=== PATIENT | female | born 1930 | race Caucasian/White ===

== ENCOUNTER 2016-08-28 17:36 | Observation (INO) | payer OTHER, MEDICARE ==
[2016-08-28] MEDS ORDERED: PANTOPRAZOLE SODIUM 40 MG VIAL IV ONE (19:12)
[2016-08-28] MEDS ORDERED: SODIUM CHLORIDE 0.9% 1,000 ML ONE (19:12)
[2016-08-28 20:07] LABS: ALB/GLOB RATIO 1.3 (>1.0); ALBUMIN 4.2 gm/dL (3.5-5.7); CALCIUM 9.4 mg/dL (8.6-10.3); MAGNESIUM 1.8 mg/dL (1.9-2.7)
[2016-08-28 20:08] LABS: INR 0.98; PROTHROMBIN TIME 10.3 SECONDS (9.3-11.4)
[2016-08-28 20:09] LABS: C-REACTIVE PROTEIN 1.7 mg/dl (<1.0)
[2016-08-28 20:16] LABS: CKMB ISOENZYME 2.7 ng/ml (0.6-6.3)
[2016-08-28 20:39] LABS: TROPONIN I < 0.01 ng/ml (0.0-0.06)
[2016-08-28] MEDS ORDERED: BISACODYL 10 MG SUP PR PRN (20:42)
[2016-08-28] MEDS ORDERED: SODIUM CHLORIDE 0.9% 100 ML IV PRN (20:42)
[2016-08-28] MEDS ORDERED: BLISTEX LIPSTICK 1 EACH TP PRN (20:42)
[2016-08-28] MEDS ORDERED: MAGNESIUM HYDROXIDE 30 ML UDCUP PO PRN (20:42)
[2016-08-28] MEDS ORDERED: ACETAMINOPHEN 325 MG TABLET PO PRN (20:42)
[2016-08-28] MEDS ORDERED: BISACODYL 5 MG TABLET.EC PO PRN (20:42)
[2016-08-28] MEDS ORDERED: MENTHOL/CETYLPYRD 1 EACH LOZENGE PO PRN (20:42)
[2016-08-28 20:44] LABS: HEMATOCRIT 40.9 % (37.0-47.0); HEMOGLOBIN 13.8 gm/l (12.0-16.0)
[2016-08-28 20:45] LABS: BASO % 0.2 % (0.2-1.0); IMM NEUT% 0.4 % (0-1); LYMPH # 0.7 (1.0-4.8); LYMPH % 8.6 % (15-45); MEAN CELL VOLUME 91.3 fl (81.0-99.0); MEAN CORPUSCULAR HEMOGLOBIN 30.8 pg (27.0-31.0); MEAN CORPUSCULAR HGB CONC 33.7 g/dl (33.0-37.0); MEAN PLATELET VOLUME 9.9 fl (7.4-10.4); MONO # 0.8 (0.0-0.8); MONO % 8.8 % (4-12); PLATELET COUNT 255 K/mm3 (130-400); RED CELL DISTRIBUTION WIDTH 13.1 % (11.5-14.5)
[2016-08-28] MEDS ORDERED: SODIUM CHLORIDE 0.9% 500 ML IV SCH (20:45)
[2016-08-28] MEDS ORDERED: CEFTRIAXONE SODIUM 1 G in NS 0.9% (MINI-BAG PLUS) 50 ML IV SCH (22:20)
[2016-08-28 22:30] LABS: URINE BILIRUBIN NEGATIVE (NEGATIVE); URINE BLOOD 3+ (NEGATIVE); URINE GLUCOSE (UA) NEGATIVE (NEGATIVE); URINE LEUKOCYTE ESTERASE 1+ (NEGATIVE); URINE NITRITE NEGATIVE (NEGATIVE); URINE PROTEIN 1+ (NEGATIVE); URINE UROBILINOGEN 1 mg/dL (0-1 mg/dl)
[2016-08-28] MEDS ORDERED: AZITHROMYCIN 500 MG in SODIUM CHLORIDE 0.9% 250 ML IV SCH (22:30)
[2016-08-28 22:32] LABS: URINE APPEARANCE CLEAR; URINE COLOR AMBER
[2016-08-28 22:47] LABS: URINE BACTERIA 1+
[2016-08-28] MEDS ORDERED: PUMP TUBING ONE (23:03)
[2016-08-28] MEDS: SODIUM CHLORIDE 0.9% 1,000 ML IV SCH (23:08)
[2016-08-28] MEDS: DOCUSATE SODIUM 100 MG CAPSULE PO SCH (23:11)
[2016-08-29 00:19] VITALS: BMI 22.6
[2016-08-29] MEDS ORDERED: Oseltamivir Phosphate 75 MG CAP PO SCH (00:30)
--- NOTE | 2016-08-29 05:42 | HP ---
MARVIN BAER [id number] DATE OF ADMISSION: August 28, 2016 CHIEF COMPLAINT: Syncope and fall. HISTORY OF PRESENT ILLNESS: The patient is an 86-year-old female who is reported to be on the phone today and then stopped talking and a fall was heard over the phone. Her family then went to check on her and no injury was noted, but in the process of cleaning her up, some dark melena like stool was noted. She also vomited but it only looked like her lunch, no coffee grounds or blood were noted. She denies any use of antiinflammatories. Does not use any alcohol. She has had no history of upper or lower endoscopy. At this time, her only complaint is that she is tired and thirsty. She denies pain at this time. PAST MEDICAL HISTORY: Remarkable for: 1. Alzheimer's type dementia. 2. She had one similar near syncopal episode in 2014 which did not have an obvious cause. 3. Hypertension where she takes medicine. PAST SURGICAL HISTORY: Remarkable for: 1. Vaginal hysterectomy. 2. Tonsillectomy. ALLERGIES: NONE. MEDICATIONS: She takes: 1. Lisinopril/hydrochlorothiazide 20/12.5 mg daily. 2. Atenolol 50 mg daily, although daughter is not certain if the Zestoretic dose is actually two pills. 3. Other medicines she has taken in the past include vitamin D and alendronate. 4. She has also stopped the pravastatin. SOCIAL HISTORY: She lives at home. She is . She previously has been a school traffic guard. She has six kids. No smoking and no alcohol. No particular sikhism affiliation. Hobbies include fill in books, crosswords and puzzles. FAMILY HISTORY: Father, no data. Mom at 69. REVIEW OF SYSTEMS: Moderately worsened memory just in the last couple of days noted by family. She has also had some cough and was seen by Dr. Bradford earlier today. Eyes are okay. Ears are okay although she is quite hard of hearing. Nose is okay. Mouth is okay. Teeth have been okay, no complaints. Neck is okay, no complaints. Breathing is reported to be okay although she has had a cough. Family has noted that she gets out of breath with activity particularly recently. No heart complaints, no stomach complaints, no history of diarrhea. No urinary complaints. No arm or leg complaints, no swelling. She did have a spot which sounds like lichen simplex chronicus two years ago on her ankle which resolved with stopping scratching. She had the fall today but no other recent falls. She does not have any history of strokes noted. Daughter indicates that she would be DO NOT RESUSCITATE. PHYSICAL EXAM: GENERAL: Uncomfortable female, chilling some. She is hard of hearing and demented, otherwise appears younger than stated age. VITAL SIGNS: Blood pressure is 98/46, temperature 97.6, heart rate 78, respirations 16, 98% saturation on room air. HEAD: Head is normocephalic, atraumatic. There is no bruising or tenderness. EYES: Are normal externally. EARS: Quite hard of hearing bilaterally. No significant abnormality other than some cerumen. NOSE: Is normal. MOUTH: Is unremarkable. Dentition is very good for age. NECK: Is supple, no jugular venous distension, no masses. No tenderness, no crepitance. LUNGS: Slight tubular breath sounds noted in the right posterior lung field. Rare crackles are heard but no significant wheezing is noted. HEART: Regular rate and rhythm without murmur. ABDOMEN: A few striae noted, no rebound, no guarding. Bowel sounds are normal. Nontender, nondistended. GENITOURINARY: Exam is deferred. BREAST: Exam is deferred. EXTREMITIES: No clubbing, cyanosis or edema. Onychomycosis is noted but otherwise extremities appear to be quite good for age. NEUROLOGIC: Cranial nerves are intact except for being quite hard of hearing. Her cognition does appear impaired consistent with the diagnosis of Alzheimer's type dementia. However, she is very pleasant. LABORATORY: Sodium 133, potassium 3.7, chloride 94, CO2 28, BUN 26, creatinine 1.1, glucose 121, calcium is 9.4, magnesium 1.8, AST 44, ALT 22, alkaline phosphatase 59, lactate 1.2, albumin 4.2, lipase 45, CPK total is 36, BNP is 44, CRP is 1.7. CBC is still pending. INR is 0.98. IMAGING: No imaging so far. ASSESSMENT AND PLAN: 1. Syncopal event with reported dark stool. Plan to monitor hemoglobin and hematocrit, continue on telemetry. Fecal occult blood testing. Anticipate Protonix and could consider for scope testing either as inpatient or outpatient later. 2. Cough with recent syncopal event. We will check influenza, check chest x-ray, check CBC. We will be holding lisinopril. Blood cultures were drawn. Anticipate starting Rocephin and azithromycin and given IV fluid bolus and recheck lactate. 3. Hypertension. Blood pressure is currently on the low side so anticipate holding the Zestoretic and put a parameter for the atenolol. 4. Dementia, Alzheimer's type, without behavioral disturbance. 5. DO NOT RESUSCITATE status discussed with daughter. 6. Venous thrombosis prophylaxis. Anticipate use of mechanical treatment because of the concern for blood loss, although at this time her color still appears to be very good. cc: Nini Blanco M.D.
[2016-08-29 07:00] LABS: ABSOLUTE NEUTROPHIL COUNT 3.6 K/mm3 (1.8-7.7); BASO % 0.2 % (0.2-1.0); HEMATOCRIT 33.7 % (37.0-47.0); HEMOGLOBIN 11.3 gm/l (12.0-16.0); IMM NEUT% 0.4 % (0-1); LYMPH % 19.5 % (15-45); MEAN CELL VOLUME 91.3 fl (81.0-99.0); MEAN CORPUSCULAR HEMOGLOBIN 30.6 pg (27.0-31.0); MEAN CORPUSCULAR HGB CONC 33.5 g/dl (33.0-37.0); MEAN PLATELET VOLUME 9.8 fl (7.4-10.4); MONO # 0.6 (0.0-0.8); MONO % 11.8 % (4-12); NEUT % 68.1 % (43-75); PLATELET COUNT 203 K/mm3 (130-400); RED CELL DISTRIBUTION WIDTH 13.2 % (11.5-14.5)
[2016-08-29] MEDS: SODIUM CHLORIDE 0.9% 1,000 ML IV SCH ×2 (07:29→09:14)
[2016-08-29 07:33] LABS: ALB/GLOB RATIO 1.3 (>1.0); ALBUMIN 3.3 gm/dL (3.5-5.7); CALCIUM 7.9 mg/dL (8.6-10.3)
--- NOTE | 2016-08-29 07:55 | RAD ---
History: Cough with syncope. Comparison: 08/24/2014. Technique: 2 views Findings: The soft tissue and bony structures are unremarkable. The heart size is appropriate. No infiltrate, effusion or pneumothorax is observed. The hilar and mediastinal structures are normal. Impression: 1. No active intra-thoracic disease.
[2016-08-29] MEDS: ATENOLOL 50 MG TABLET PO SCH (09:04)
[2016-08-29] MEDS: DOCUSATE SODIUM 100 MG CAPSULE PO SCH ×2 (09:13→22:10)
--- NOTE | 2016-08-29 10:40 | PDOC43 ---
- Subjective Chief Complaint: Syncope, hematochezia Patient reports feeling pretty good. Annoyed by beeping IV. PT reports pt tolerated activity ok. Some additional red blood with stool this am. No new c/ o. - Objective Vital Signs Temperature 99.0 F 08/29/16 05:00 Pulse Rate 78 08/29/16 09:11 Respiratory Rate 18 08/29/16 09:11 Blood Pressure 96/78 08/29/16 09:11 O2 Saturation by Pulse Oximetry 97 08/29/16 09:11 Oxygen Delivery Method Room Air Oxygen Flow Rate 0 Vital Signs Last 12 Hours Temp Pulse Resp BP Pulse Ox 08/29/16 09:11 78 18 96/78 97 08/29/16 09:09 79 18 98/58 95 08/29/16 09:07 65 18 95/45 96 08/29/16 08:00 18 08/29/16 05:00 99.0 F 76 18 103/61 92 08/29/16 00:16 99.1 F 82 16 107/53 94 Intake and Output 08/27/16 08/28/16 08/29/16 23:59 23:59 23:59 Intake Total 1150 Output Total 601 Balance 549 General: Alert, Cooperative, No Acute Distress HEENT: Atraumatic Lungs: Clear to Auscultation Bilaterally (air movement fairly good bilat.), Normal Air Movement Cardiovascular: Regular Rate and Rhythm Abdomen: Soft, Normal Bowel Sounds, Non-Distended, No Tenderness Extremities: No Edema, No Tenderness Skin: Normal Color, No Rash, No Erythema Neurological: Normal Speech Psych/Mental Status: Normal Affect (demented) Laboratory 08/29/16 06:30 08/29/16 06:30 08/29/16 08/28/16 06:30 23:15 RBC 3.69 L Estimated GFR 52 L Calcium 7.9 L Total Protein 5.9 L Albumin 3.3 L Influenza A (Rapid) Positive H Current Medications: Current meds reviewed in EMR. Active Medications Acetaminophen (Tylenol) 650 mg PO Q6H PRN PRN Reason: Pain or Temperature > 100.5 F Atenolol (Tenormin) 50 mg PO DAILY [facility] Last Admin: 08/29/16 09:04 Dose: Not Given Benzocaine/Menthol (Cepacol) 1 each PO PRN PRN PRN Reason: Sore Throat Bisacodyl (Dulcolax) 10 mg HI DAILY PRN PRN Reason: Constipation Bisacodyl (Dulcolax) 5 mg PO DAILY PRN PRN Reason: Constipation Docusate Sodium (Colace) 100 mg PO BID [facility] Last Admin: 08/29/16 09:13 Dose: 100 mg Sodium Chloride (Sodium Chloride 0.9%) 100 mls @ 25 mls/hr IV PRN PRN PRN Reason: Flush Sodium Chloride (Sodium Chloride 0.9%) 1,000 mls @ 125 mls/hr IV .Q8H [facility] Stop: 08/29/16 12:44 Last Admin: 08/29/16 09:14 Dose: 125 mls/hr Azithromycin 500 mg/ Sodium (Chloride) 250 mls @ 250 mls/hr IV Q24H [facility] Last Admin: 08/28/16 23:57 Dose: 250 mls/hr Ceftriaxone Sodium 1 g/ NS 0.9 (% (MINI-BAG PLUS)) 50 mls @ 200 mls/hr IV Q24H [facility] Last Admin: 08/28/16 23:09 Dose: 200 mls/hr Magnesium Hydroxide (Milk Of Magnesia) 30 ml PO DAILY PRN PRN Reason: Constipation Oseltamivir Phosphate (Tamiflu) 30 mg PO BID [facility] Pantoprazole Sodium (Protonix) 40 mg IV Q24H [facility] Petrolatum/Paraffin/Mineral Oil (Blistex) 1 each TP PRN PRN PRN Reason: Dry and/or chapped lips Sodium Chloride (Normal Saline 10ml Flush) 10 - 50 ml IV PRN PRN PRN Reason: IV Flush Sodium Chloride (Normal Saline 10ml Flush) 10 ml IV Q8HR [facility] Last Admin: 08/29/16 09:04 Dose: Not Given - Problems: Assessment/Plan (1) Cough Status: Acute Assessment/Plan: Due to acute influenza. Started on Tamiflu 08/28. Holding PAM-I for now, evie with lower BP. (2) Syncope Qualifiers: Syncope type: unspecified Qualifier Code: (R55) Syncope and collapse Status: Acute Assessment/Plan: Suspect lower BP associated with illness. Anticipate holding med(s) for now. Reported to be doing well activity tolerance-tong. (3) Dementia Status: Chronic Assessment/Plan: Stable. (4) Hypertension Qualifiers: Hypertension type: essential hypertension Qualifier Code: (I10) Essential (primary) hypertension Status: Chronic Assessment/Plan: Anticipate holding PAM/HCTZ for now. (5) Hematochezia Status: Acute Assessment/Plan: Laboratory Tests 08/28/16 08/29/16 19:30 06:30 Hgb 13.8 11.3 L D Moderate drop in Hb. Plan to resume regular diet, don't anticipate endoscopy while in the hospital. Stop IV and recheck H/H in am. VTE Prophylaxis: enoxaparin Disposition: Consider for DC tomorrow if continues to do well, Hb stable.
[2016-08-29] MEDS: OSELTAMIVIR PHOSPHATE 30 MG/5 ML SYRINGE PO SCH ×2 (11:07→22:10)
[2016-08-29] MEDS: PANTOPRAZOLE 40 MG TABLET DR PO SCH (11:10)
[2016-08-29] MEDS ORDERED: PANTOPRAZOLE SODIUM 40 MG VIAL IV SCH (20:00)
[2016-08-30 06:54] LABS: HEMATOCRIT 33.9 % (37.0-47.0); HEMOGLOBIN 11.4 gm/l (12.0-16.0); MEAN CELL VOLUME 91.1 fl (81.0-99.0); MEAN CORPUSCULAR HEMOGLOBIN 30.6 pg (27.0-31.0); MEAN CORPUSCULAR HGB CONC 33.6 g/dl (33.0-37.0); RED CELL DISTRIBUTION WIDTH 12.9 % (11.5-14.5)
[2016-08-30 07:51] VITALS: BP 133/55
[2016-08-30] MEDS: DOCUSATE SODIUM 100 MG CAPSULE PO SCH (08:13)
[2016-08-30] MEDS: ATENOLOL 50 MG TABLET PO SCH (08:13)
[2016-08-30] MEDS: OSELTAMIVIR PHOSPHATE 30 MG/5 ML SYRINGE PO SCH (08:28)
--- NOTE | 2016-08-30 11:43 | PDOC43 ---
- Subjective Chief Complaint: Syncope, hematochezia Patient reported to be doing well, fairly close to baseline. Tolerating activity ok. No new c/o. - Objective Vital Signs Temperature 99.2 F 08/30/16 08:00 Pulse Rate 65 08/30/16 08:00 Respiratory Rate 17 08/30/16 08:00 Blood Pressure 133/55 08/30/16 08:00 O2 Saturation by Pulse Oximetry 100 08/30/16 08:00 Oxygen Delivery Method Room Air Oxygen Flow Rate 0 Vital Signs Last 12 Hours Temp Pulse Resp BP Pulse Ox 08/30/16 08:00 99.2 F 65 17 133/55 100 08/30/16 07:00 99.2 F 65 17 133/55 100 08/30/16 03:20 98.1 F 71 18 116/95 99 08/30/16 02:00 18 08/30/16 01:02 143/65 08/30/16 00:59 145/75 08/30/16 00:55 99.2 F 70 18 112/64 99 Intake and Output 08/28/16 08/29/16 08/30/16 23:59 23:59 23:59 Intake Total 3220 150 Output Total 1101 200 Balance 2119 -50 General: Alert, Cooperative, No Acute Distress Lungs: Clear to Auscultation Bilaterally Cardiovascular: Regular Rate and Rhythm Abdomen: Soft, Normal Bowel Sounds, Non-Distended Extremities: No Edema, No Tenderness Skin: Normal Color Neurological: Normal Speech Psych/Mental Status: Other (poor memory) Laboratory 08/30/16 05:20 08/29/16 06:30 08/30/16 05:20 RBC 3.72 L Laboratory Tests 08/28/16 08/29/16 08/30/16 19:30 06:30 05:20 Hgb 13.8 11.3 L D 11.4 L Current Medications: Current meds reviewed in EMR. Active Medications Acetaminophen (Tylenol) 650 mg PO Q6H PRN PRN Reason: Pain or Temperature > 100.5 F Atenolol (Tenormin) 50 mg PO DAILY [facility] Last Admin: 08/30/16 08:13 Dose: 50 mg Benzocaine/Menthol (Cepacol) 1 each PO PRN PRN PRN Reason: Sore Throat Bisacodyl (Dulcolax) 10 mg [place] DAILY PRN PRN Reason: Constipation Bisacodyl (Dulcolax) 5 mg PO DAILY PRN PRN Reason: Constipation Docusate Sodium (Colace) 100 mg PO BID [facility] Last Admin: 08/30/16 08:13 Dose: 100 mg Sodium Chloride (Sodium Chloride 0.9%) 100 mls @ 25 mls/hr IV PRN PRN PRN Reason: Flush Magnesium Hydroxide (Milk Of Magnesia) 30 ml PO DAILY PRN PRN Reason: Constipation Oseltamivir Phosphate (Tamiflu) 30 mg PO BID [facility] Last Admin: 08/30/16 08:28 Dose: 30 mg Pantoprazole Sodium (Protonix) 40 mg PO Q24H [facility] Last Admin: 08/29/16 11:10 Dose: 40 mg Petrolatum/Paraffin/Mineral Oil (Blistex) 1 each TP PRN PRN PRN Reason: Dry and/or chapped lips Sodium Chloride (Normal Saline 10ml Flush) 10 - 50 ml IV PRN PRN PRN Reason: IV Flush Sodium Chloride (Normal Saline 10ml Flush) 10 ml IV Q8HR [facility] Last Admin: 08/30/16 08:13 Dose: 10 ml - Problems: Assessment/Plan (1) Syncope Qualifiers: Syncope type: unspecified Qualifier Code: (R55) Syncope and collapse Status: Acute Assessment/Plan: Suspect lower BP associated with illness. Anticipate holding zestoretic for now. Reported to be doing well activity tolerance-tong. (2) Cough Status: Acute Assessment/Plan: Due to acute influenza. Started on Tamiflu 08/28. Holding PAM-I for now, evie with lower BP. (3) Dementia Status: Chronic Assessment/Plan: Stable. Appreciate SW/childcare worker speaking with daughter . Anticipate DC to daughter's house. (4) Hypertension Qualifiers: Hypertension type: essential hypertension Qualifier Code: (I10) Essential (primary) hypertension Status: Chronic Assessment/Plan: Anticipate holding PAM/HCTZ, check with Dr Bradford about restart. (5) Hematochezia Status: Acute Assessment/Plan: Hb stable from yesterday. Rec'd talk with Dr Bradford about whether to pursue colonoscopy, other eval. VTE Prophylaxis Contraindications: Patient noncompliant VTE Prophylaxis: enoxaparin not given due to bleed concern. Mechanical tx only. Disposition: Consider for DC today with family (to daughter's house)
[2016-08-30] MEDS: PANTOPRAZOLE 40 MG TABLET DR PO SCH (12:08)
--- NOTE | 2016-08-30 19:10 | DS ---
MARVIN BAER [id number] DATE OF ADMISSION: 08/28/2016 DATE OF DISCHARGE: 08/30/2016 DISCHARGE DIAGNOSES: 1. Syncope attributed to low blood pressure associated with influenza. 2. Influenza A. 3. Reported hematochezia with minimal hemoglobin change. 4. Dementia, Alzheimer type. 5. Hypertension, now with lower blood pressures. 6. DO NOT RESUSCITATE order. REASON FOR ADMISSION: This is a 86-year-old female who has been noted to have a cough just recently. She was taken to the doctor earlier and not felt to have a significant pneumonia. Later in the day when she was talking with her daughter on the phone, it was noted that she had syncopal event and had fallen to the floor without significant injury. She was brought to the emergency department, and her labs had shown a white count of 8.5, hemoglobin 13.8, lactate 1.2. Chemistry profile: Sodium 133, potassium 3.7, chloride 94, BUN 26, creatinine 1.1, glucose 121, magnesium 1.8, AST 44, ALT 22, and CK 376. BNP was 44. Troponin less than 0.01. CK-MB is 2.7. Lipase is 45. Urinalysis had 10 to 15 red cells, but culture suggested contamination. She also had a chest x-ray which was negative. Since she had some reported Hemoccult positive stools, she was referred to Hospitalist service for evaluation, and monitoring of possible gastrointestinal blood loss of cause of her syncope. She was reviewed by the Hospitalist service, color was quite good, and her hemoglobin was stable so she was observed. Her blood pressure was noted to be low, and she was chilling some, so a influenza test was performed and it was positive. She had initially been started on Rocephin and azithromycin, but then had Tamiflu added when the influenza test was positive. Patient had a remarkable good improvement in symptoms and wellbeing after holding her lisinopril hydrochlorothiazide associated with the low blood pressures she had on admission. By 08/29/2016, she had a systolic above 120, and was feeling well, ambulating well, and had no complaints where as her initial blood pressure had been as low as 98/46. Her family was concerned about her hemoglobin and that she might have further drop in hemoglobin being from 13.8 to 11.3, but the next morning it was 11.4 on 08/30/2016 and the drop was primarily attributed to hydration given. She was felt to be stable. Consultation with social work and care managers also helped discuss options for support related to her dementia. She is anticipated to be discharged to home and will be going home on atenolol 50 mg by mouth daily, Tamiflu renal adjustment at 30 mg by mouth twice a day x4 more days, and she will be holding the lisinopril hydrochlorothiazide for the time being. She is to follow up with Dr. Blanco and Dr. Blanco's office will be able to discuss whether to resume the blood pressure medicine, and if they wish to pursue endoscopy regarding suspected lower gastrointestinal blood loss. The patient's vital signs at the time of discharge: Temperature 99.2, pulse 65, blood pressure 133/55, and 100% saturation on room air, respirations 17. Her blood cultures are negative at the time of discharge and her urine culture is suggested contamination. E/trr cc: Dr. Blanco
== END 2016-08-30 13:43 | disposition home or self-care (01) ==
LOC: ED 17:36 → INTOOBSV 19:39 → MS 19:39
PROVIDERS: ADMIT Family Medicine; ATTEND Family Medicine
DX: J11.1 Influenza due to unidentified influenza virus with other respiratory manifestations (principal); G30.9 Alzheimer's disease, unspecified; F02.80 Dementia in other diseases classified elsewhere, unspecified severity, without behavioral disturbance, psychotic disturbance, mood disturbance, and anxiety; I10 Essential (primary) hypertension; Z66 Do not resuscitate; K92.1 Melena; Z91.81 History of falling; R03.1 Nonspecific low blood-pressure reading
CPT/HCPCS: 83605 ×2; 83690; 83880; 86141; 85027; 85025 ×2; 82550; 82553; 87040 ×2; 87086; 80053 ×2; 83735; 85610; 84484 ×2; 81001; 36415 ×3; 71020; 87804; 86901; 86850 ×3; 97003; 99284; 96374; 96361; 93005; 99285; A9270 ×6; C9113; J0696; J0456; J7050; J7030 ×2